=== PATIENT | male | born 1955 | race Caucasian/White ===

== ENCOUNTER 2021-10-27 06:14 | Emergency (ER) | payer SELFPAY ==
[~2021-10-27] VITALS: Ht 167.6 cm; Wt 79.0 kg
[2021-10-27 06:31] VITALS: BP 124/76
== END 2021-10-27 07:09 | disposition left against medical advice (07) ==
LOC: ER 06:14
DX: M25.552 Pain in left hip (principal); Z53.21 Procedure and treatment not carried out due to patient leaving prior to being seen by health care provider